=== PATIENT | male | born 1955 | race Caucasian/White ===

== ENCOUNTER → 2017-03-19 | Outpatient (CLI) | payer BC ==
[~2017-03-19] MED LIST: [UNRECOGNIZED DRUG - OTHER]
--- NOTE | 2017-03-19 10:29 | DIAGNOSTIC IMAGING REPORT ---
HEAD CT NONCONTRAST CT DOSE: 614.27 mGy.cm HISTORY: Trauma HEAD INJURY 03/18/17, VISUAL DISTURBANCES TECHNIQUE: Multiaxial CT images of the head were performed without the use of intravenous contrast. Comparison: None. Findings: The paranasal sinuses and mastoid air cells are clear. The calvarium and skull base are intact. The ventricles and sulci are within normal limits. There is no mass, hematoma, midline shift, or acute infarct. Impression: No acute intracranial abnormality. Electronically signed by: Justo Franklin M.D. 03/19/2017 10:28 AM Dictated Date/Time: 03/19/2017 10:25 AM
== END | disposition home or self-care (01) ==
LOC: C.CTS 10:07
PROVIDERS: ATTEND Family Medicine
DX: S09.90XA Unspecified injury of head, initial encounter (principal); X58.XXXA Exposure to other specified factors, initial encounter

== ENCOUNTER 2025-02-11 07:13 | Observation (INO) ==
--- NOTE | 2025-01-21 10:32 | PAT Medication Instructions ---
Medication Instructions Date of Service January 21, 2025 Home Medications losartan 100 mg tablet 100 mg PO QAM meloxicam 15 mg tablet 15 mg PO DAILY PRN Pain melatonin 3 mg capsule 3 mg PO HS PRN Sleep amlodipine 10 mg tablet 10 mg PO QPM meclizine 25 mg tablet (Dramamine (meclizine)) 25 mg PO DAILY PRN prn acetaminophen 500 mg tablet (Acetaminophen Extra Strength) 500 mg PO Q6H PRN prn diclofenac sodium 1 % topical gel 4 g topical BID PRN prn multivitamin 1 tab PO QAM ASK your surgeon for instructions meloxicam 15 mg tablet 15 mg PO DAILY PRN Pain STOP taking 24 hours before surgery diclofenac sodium 1 % topical gel 4 g topical BID PRN prn DO NOT take the morning of surgery losartan 100 mg tablet 100 mg PO QAM multivitamin 1 tab PO QAM Take morning of surgery With a small sip of water, OTHERWISE NOTHING TO EAT OR DRINK AFTER MIDNIGHT: meclizine 25 mg tablet (Dramamine (meclizine)) 25 mg PO DAILY PRN prn (if needed) acetaminophen 500 mg tablet (Acetaminophen Extra Strength) 500 mg PO Q6H PRN prn (if needed) Take evening before surgery melatonin 3 mg capsule 3 mg PO HS PRN Sleep (if needed) amlodipine 10 mg tablet 10 mg PO QPM meclizine 25 mg tablet (Dramamine (meclizine)) 25 mg PO DAILY PRN prn (if needed) acetaminophen 500 mg tablet (Acetaminophen Extra Strength) 500 mg PO Q6H PRN prn (if needed) Other Notes If you have any questions please call us at [phone] or [phone] or [phone] or [phone]
--- NOTE | 2025-01-28 08:24 | Anesthesiology Consultation ---
Date of Service January 28, 2025 Assessment & Plan (1) Encounter for pre-operative examination: - Check BSG DOS (glucose elevated on preop labs at 145. No reported hx of diabetes or prediabetes. Will recheck BSG DOS) - Infectious disease screening: Per assessment on 01/28/25- No known recent infectious disease contacts or current infectious disease symptoms. - Outpatient joint assessment: Pt currently scheduled for inpatient pathway. If surgeon requests review for outpatient joint pathway, patient is an acceptable candidate for outpatient joint program from anesthesia standpoint pending surgeon's office assessment that patient is motivated, has good support and completes Same Day Joint Program preop requirements. Chart Review Chart Review: Acceptable Risk for Surgery and Patient seen in Pre Admission Testing Teaching & Discussion Pre-Anesthesia Teaching/Discussion Notes: Instructed NPO after midnight before surgery,except medications with 15 cc of water. Medication instructions provided according to the PAT guidelines. History Surgery Operation Date: 02/11/25 12:00 Proposed Procedures p Right Anterior Total Hip Arthroplasty - Ben Huddleston, DO Height/Weight Height: 6 ft 2 in Weight: 117.2 kg Allergies Allergy/AdvReac Type Severity Reaction Status Date / Time No Known Allergies Allergy Verified 01/20/25 08:54 Medications Home Medications Medication Instructions Recorded Confirmed Last Taken losartan 100 mg tablet 100 mg PO QAM 12/21/19 01/20/25 03/11/23 meloxicam 15 mg tablet 15 mg PO DAILY PRN Pain 12/21/19 01/20/25 Unknown melatonin 3 mg capsule 3 mg PO HS PRN Sleep 11/22/22 01/20/25 03/10/23 amlodipine 10 mg tablet 10 mg PO QPM 07/14/24 01/20/25 Unknown meclizine 25 mg tablet (Dramamine 25 mg PO DAILY PRN prn 01/13/25 01/20/25 Unknown (meclizine)) acetaminophen 500 mg tablet 500 mg PO Q6H PRN prn 01/20/25 01/20/25 Unknown (Acetaminophen Extra Strength) diclofenac sodium 1 % topical gel 4 g topical BID PRN prn 01/20/25 01/20/25 Unknown multivitamin 1 tab PO QAM 01/20/25 01/20/25 Unknown Past Medical History Medical History Anterolisthesis Chronic low back pain Hypertension Osteoarthritis Retrolisthesis of vertebrae hx Spinal stenosis, lumbar Tinnitus Exercise / Class Metabolic Activity II 4-5 Yardwork/Stairs/Walk up hill (one FS: No CP, no SOB; uses cane PRN) Past Family History Family History Mother Cancer kidney Father Stroke Past Surgical History Surgical History Hx of colonoscopy S/P epidural steroid injection (12/15/24) Past Anesthesia History No Hx of Anesthesia Complications and No Family Hx of Anesthesia Complications History of PONV No Hx of PONV and No Hx of Motion Sickness Social History Smoking Status: Former smoker Do You Dip or Chew Tobacco: No Smoking End Date: 1988 Hx Alcohol Use: Yes Alcohol type: beer alcohol intake frequency: a few times a month (At most) Hx Substance Use: No substance use type: does not use Review of Systems Patient denies chest pain, shortness of breath, dyspnea on exertion, fever, chills, cough, wheezing, palpitations. Physical Exam Vital Signs BP 115/74 P 99 TEMP 97.5 SP02 98%RA RESP 16 Physical Full cervical extension range of motion. Full TMJ range of motion. TMD > 3.5 finger breaths Mallampati Score II Dentition: missing molars, + caps Lungs: clear throughout to auscultation Cardiac: regular rate and rhythm, no murmurs noted Spine: normal Carotid arteries: negative bruit Extremities: no LE edema Lab Results Anesthesia Preop Results Results Anesthesia Widget: WBC 5.03 K/ul (4.8-10.8) 01/28/25 Hgb 15.0 g/dl (14.0-18.0) 01/28/25 Hct 42.6 % (42.0-52.0) 01/28/25 Plt 167 K/uL (130-400) 01/28/25 Na 141 mmol/L (136-145) 01/28/25 K 3.8 mmol/L (3.5-5.1) 01/28/25 Cl 106 mmol/L (98-107) 01/28/25 CO2 27 mmol/L (21-32) 01/28/25 BUN 14 mg/dl (6-23) 01/28/25 Creat 0.55 mg/dl (0.6-1.4) L 01/28/25 Glucose Level 145 mg/dl (70-99(Fasting)) H 01/28/25 PT 10.9 Seconds (9.0-12.0) 01/28/25 PTT 28 Seconds (21-31) 01/28/25 INR 1.0 (0.9-1.1) 01/28/25 Blood Type O Positive 01/28/25 Antibody Screen NEGATIVE 01/28/25 Testing Electrocardiogram Date: 01/28/25 SR with PVCs at 90bpm. "Otherwise normal ECG" Chest X-Ray Date: 01/28/25 FINDINGS: No focal lung consolidation. No pneumothorax or pleural effusion. Normal heart size. Left-sided aortic arch. Midline trachea. No acute osseous abnormality. Degenerative changes of the shoulders. Included upper abdomen is unremarkable. IMPRESSION: No acute cardiopulmonary findings.
[~2025-02-11 07:13] MED LIST changes: +ROPIVACAINE 0.5% 5 MG/ML 30 ML VIAL ONE; -[UNRECOGNIZED DRUG - OTHER]
[2025-02-11] MEDS ORDERED: MIDAZOLAM HCL 1 MG/ML 2ML VIAL ONE ×2 (07:24→09:13)
[2025-02-11] MEDS: ACETAMINOPHEN 500 MG TAB PO SCH ×2 (07:26→13:33)
[2025-02-11] MEDS: dexAMETHasone**PF** 10 MG/ML VIAL IV SCH (07:26)
[2025-02-11] MEDS: GABAPENTIN 300 MG CAP PO SCH (07:26)
[2025-02-11] MEDS: LR 60ML/HR IV SCH (07:26)
[2025-02-11] MEDS: FAMOTIDINE 20 MG TAB PO SCH (07:26)
[2025-02-11] MEDS: LR 500ML BOLUS, THEN 15ML/HR IV SCH (07:40)
--- NOTE | 2025-02-11 08:10 | History & Physical Bridge Note ---
Date of Service February 11, 2025 History & Physical Bridge Note I have examined the patient, reviewed the History & Physical and in the interval since the performance of the History & Physical I have noted the following changes of clinical significance: no changes noted
[2025-02-11] MEDS ORDERED: ATROPINE SULFATE 0.1 MG/ML 10ML SYR IV PRN (08:11)
[2025-02-11] MEDS ORDERED: HYDROmorphone INJ 1 MG/ML SYRINGE IV PRN (08:11)
[2025-02-11] MEDS ORDERED: fentaNYL citrate PF 100 MCG/2 ML VIAL IV PRN (08:11)
[2025-02-11] MEDS ORDERED: ePHEDrine sulfate 50 MG/ML AMP IV PRN (08:11)
[2025-02-11] MEDS ORDERED: ONDANSETRON INJ 2 MG/ML 2 ML VIAL IV PRN ×2 (08:11→12:36)
[2025-02-11] MEDS: TRANEXAMIC ACID 1,000 MG **IV Pre-op IV SCH (08:42)
[2025-02-11] MEDS: ceFAZolin 2000MG 2,000 MG/15 ML SYR IV SCH ×2 (08:52→18:05)
[2025-02-11] MEDS ORDERED: PROPOFOL IV EMULSION 10 MG/ML 20 ML VIAL IV ONE ×4 (09:04→10:01)
[2025-02-11] MEDS ORDERED: PHENYLEPHRINE 100MCG/ML 5ML SYR ONE (09:49)
[2025-02-11] MEDS: ROPIV 0.5% 246mg, Ketorolac 30mg, EPINEPHrine 0.5mg in NSS INFIL SCH (09:55)
[2025-02-11] MEDS: TRANEXAMIC ACID 1,000 MG **IV Intra-op IV SCH (09:56)
[2025-02-11] MEDS: ORTHO JOINT ANESTHETIC ONE (09:56)
--- NOTE | 2025-02-11 10:05 | Operative Report ---
PG Post Operative Report Pre & Post Diagnosis Operation Date: 02/11/25 09:00 Pre-Op Diagnosis: Right Hip Arthritis Post-Op Diagnosis: Right Hip Arthritis I identified the patient and participated in the time-out.: Yes Procedure Operation Date: 02/11/25 09:00 Actual Procedures p Right Anterior Total Hip Arthroplasty, Uncemented(Left) - Ben Huddleston DO Surgeon Ben Huddleston DO Quantity Surveyor John Bennett PA-C Estimated Blood Loss 250 Findings Consistent with Post-Op Diagnosis Specimens Right femoral head Description of Procedure Implants used I used a ZimmerBiomet total hip arthroplasty system with a size 2 standard offset Avenir Complete stem, a 52 mm G7 cup with a 25mm screw, an E1 polyethylene liner, a 36 mm ceramic head with a +3.5 neck. Monico arrived at the hospital for the above procedure. He was seen in the preoperative holding area and the operative extremity was identified and signed. He was given a spinal anesthetic, a preoperative antibiotic, and TXA. He was then taken back to the operating room and laid on the table in the supine position. He was given basic sedation. The operative leg was secured to a Puristst leg positioner. The hip was then prepped and draped in sterile fashion. A timeout was done and the patient and the operative extremity was properly identified. An anterior approach was used. Dissection was taken down through the fascia and the tensor muscle belly was retracted laterally and the rectus was retracted medially. The circumflex vessels were identified and ligated. The capsule was then incised and tagged for later repair. The femoral neck was then cut and the femoral head was removed. The acetabulum was exposed. Time was spent doing a complete circumferential labral release. Sequential reaming of the acetabulum up to a size 52 reamer was done. Final reamings were done under fluoroscopy to ensure appropriate version. A Biomet 52 mm G7 cup was then impacted into place. A single 25 mm screw was placed. The E1 polyethylene liner was then snapped into place. Surrounding soft tissues were then injected with 100 cc of an orthopedic pain control cocktail. The proximal femur was then exposed. Sequential broaching up to a size 2 broach was done. Off that broach a size 36 head with a +3.5 neck was trialed. The hip was reduced and fluoroscopic images showed anatomic alignment of the implants in acceptable length. The broach was removed. The final size 2 standard offset Avenir Complete stem was then impacted into place. A ceramic 36 mm head with a +3.5 neck was then impacted onto the stem and the hip was reduced. Final fluoroscopic images showed anatomic alignment of the hip. The capsule was then closed with #1 Vicryl suture. A dilute betadyne lavage was then done for 3 minutes. The joint was then irrigated with normal saline solution. The fascia was closed with #1 PDS suture. Skin was closed with 2-0 Vicryl, arcenio, and a Silverlon dressing. He was then transferred to a hospital bed and taken to the post anesthesia care unit in stable condition. He tolerated the procedure well. John Bennett PA-C, was present for the entire procedure. He was critical for patient positioning, prepping, draping, retraction exposure, wound closure and application of sterile dressing. I attest to the content of the Intraoperative Record and any orders documented therein. Any exceptions are noted below.
--- NOTE | 2025-02-11 10:45 | Fluoroscopy Report ---
FL hip RT 1V CLINICAL HISTORY: RIGHT ANTERIOR HIP COMPARISON STUDY: None FLUOROSCOPY TIME: 23 seconds FLUOROSCOPY IMAGES: 1 EXPOSURE DOSE: 4.9 mGy FINDINGS: Fluoroscopy was provided for right hip prosthesis. IMPRESSION: Intraoperative fluoroscopy. ACT 112: Negative or not required by law. Electronically signed by: Kieran Buchanan M.D. 02/11/2025 10:44 AM
--- NOTE | 2025-02-11 11:33 | Anesthesiology Progress Note ---
Date of Service February 11, 2025 Anesthesia Post Procedure Vital Signs Vital Signs: Temp Pulse Pulse Resp BP Pulse Ox O2 Del Method 02/11/25 11:30 82 15 124/75 94 Room Air 02/11/25 11:20 36.3 C L 72 13 127/71 94 Room Air 02/11/25 11:10 81 14 108/66 94 Room Air 02/11/25 11:00 78 15 118/66 96 Room Air 02/11/25 10:50 86 15 112/69 95 Oxymask 02/11/25 10:45 79 14 108/68 97 Oxymask 02/11/25 10:40 79 14 96/62 L 96 Oxymask 02/11/25 10:35 81 17 95/60 L 95 Oxymask 02/11/25 10:30 36.7 C 82 14 91/57 L 94 Oxymask 02/11/25 07:21 36.5 C 103 H 20 129/86 95 Room Air O2 Flow Rate 02/11/25 11:30 02/11/25 11:20 02/11/25 11:10 02/11/25 11:00 02/11/25 10:50 3 02/11/25 10:45 12 02/11/25 10:40 12 02/11/25 10:35 12 02/11/25 10:30 12 02/11/25 07:21 Pain Intensity Right Hip: Pain Intensity: 8 Transfer of Care Handoff Completed per policy Notes Mental Status: alert / awake / arousable and participated in evaluation Patient Amnestic to Procedure: Yes Nausea / Vomiting: adequately controlled Pain: adequately controlled Airway Patency, RR, SpO2: stable & adequate BP & HR: stable & adequate Hydration State: stable & adequate Neuraxial Anesthesia: was administered and sensory block is resolving Anesthetic Complications: no major complications apparent and Pt Satisfied with anesthetic care
--- NOTE | 2025-02-11 12:08 | XRay Report ---
XR hip 1V RT w pelvis CLINICAL HISTORY: IN PACU - Post Surgical COMPARISON: None FINDINGS: Right hip prosthesis shows no hardware complication. There is expected soft tissue gas. Sk in arcenio are present. IMPRESSION: Unremarkable postoperative exam. ACT 112: Negative or not required by law. Electronically signed by: Kieran Buchanan M.D. 02/11/2025 12:07 PM
[2025-02-11] MEDS ORDERED: MAGNESIUM HYDROXIDE SUSP 30 ML UDC PO PRN (12:36)
[2025-02-11] MEDS ORDERED: bisacodyL 10 MG SUPP PR PRN (12:36)
[2025-02-11] MEDS ORDERED: METOCLOPRAMIDE HCL INJ 5 MG/ML 2 ML VIAL IV PRN (12:36)
[2025-02-11] MEDS ORDERED: HYDROmorphone INJ 0.5 MG/0.5 ML SYR IV PRN (12:36)
[2025-02-11] MEDS ORDERED: PHARMACY GLYCEMIC MGMT CONSULT PRN (12:36)
[2025-02-11] MEDS ORDERED: NALOXONE HCL 0.4 MG/1 ML VIAL/CARP IV PRN (12:36)
[2025-02-11] MEDS ORDERED: MELATONIN 3 MG TAB PO PRN (12:47)
[2025-02-11] MEDS ORDERED: CARBOHYDRATES FOR HYPOGLYCEMIA PO PRN (13:15)
[2025-02-11] MEDS ORDERED: GLUCAGON FOR INJ 1 MG VIAL SQ PRN (13:15)
[2025-02-11] MEDS ORDERED: GLUCOSE 10 TAB/TUBE PO PRN (13:15)
[2025-02-11] MEDS ORDERED: DEXTROSE 50% 50 ML SYRINGE IV PRN (13:15)
[2025-02-11] MEDS ORDERED: GLUCOSE 40% GEL 15 GM TUBE PO PRN (13:15)
[2025-02-11] MEDS: KETOROLAC TROMETHAMINE 15 MG/ML VIAL IV SCH (13:32)
[2025-02-11] MEDS: oxyCODONE HCL IR 5 MG TAB (IMMEDIATE RELEASE) PO PRN (15:13)
[2025-02-11] MEDS: INSULIN ASPART PER UNIT CHARGE SC SCH (17:34)
[2025-02-11] MEDS: SENNA 8.6 MG TAB PO SCH (20:30)
[2025-02-11] MEDS: DOCUSATE SODIUM 100 MG CAP PO SCH (20:30)
[2025-02-11] MEDS: amLODIPine BESYLATE 5 MG TAB PO SCH (20:30)
--- NOTE | 2025-02-12 08:09 | Orthopedic Progress Note ---
Date of Service February 12, 2025 Assessment & Plan (1) Status post right hip replacement: Overall he is doing very well. He is not having much pain in the right hip. He will be seen by physical therapy today for ambulation and range of motion exercises. He is on aspirin for DVT prophylaxis. He can be discharged home later today. He will follow-up with orthopedics in 2 weeks. Neida Marc was seen and examined at bedside this morning. Overall is doing very well. He is not having much pain in his right hip. He has been up and ambulating to the bathroom. He has no complaints.. Review of Systems All systems reviewed & are unremarkable except as noted in HPI & below. Physical Exam On physical exam of the right hip, the dressing is clean and dry. His leg is out full extension. He has active dorsiflexion plantarflexion of the right ankle.. Results & Data Results & Data Laboratory Results . Diagnostic Findings Postoperative x-rays of the right hip show the prosthesis to be in anatomic alignment without any evidence of fracture complication, or loosening.. PG Care Time/CCT Total # of Minutes Spent Total Time Spent with Patient: Total time spent is greater than 50% in coordination of care (as documented) at patient's floor/unit and/or counseling patient: Coding Level of Care Code 92715 Post Operative Follow-Up Diagnoses Status post right hip replacement Z96.641
--- NOTE | 2025-02-12 08:09 | Discharge Summary ---
Date of Service February 12, 2025 Principal Diagnosis Same as "Discharge Diagnosis" noted below under Discharge Instructions. Discharge Exam On physical exam of the right hip, the dressing is clean and dry. His leg is out full extension. He has active dorsiflexion plantarflexion of the right ankle.. Discharge Data Procedures Performed Operation Date: 02/11/25 09:00 Actual Procedures p Right Anterior Total Hip Arthroplasty, Uncemented(Left) - Ben Huddleston DO Ordered Studies 02/11/25 09:00 FL hip RT 1V Routine Hospital Course (1) Status post right hip replacement: On February 11, [address] [facility], [place] and underwent a right hip replacement without complication. He had a spinal anesthetic. Postoperatively, he was started on aspirin for DVT prophylaxis and transferred to the general orthopedic floors. His hospital course was uneventful. On postop day #1, his vital signs were stable and his pain was well-controlled. He was able to participate well with physical therapy doing ambulation and range of motion exercises. He was then discharged to home. He will follow-up with orthopedics in 2 weeks. PG Care Time/CCT Total # of Minutes Spent Total Time Spent with Patient: Total time spent is greater than 50% in coordination of care (as documented) at patient's floor/unit and/or counseling patient: Discharge Plan Discharge Items Patient Disposition: Home - Self-Care Reason For Visit: Right Hip Arthritis Discharge Diagnosis: Right hip replacement Activity: Per Instructions section Non-emergency contact: Surgeon Call non-emergency contact if: your wound has increased redness and your wound has increased drainage Follow-up/Referrals: PCP,NO [Primary Care Provider] - Diet: Regular Addtl Attending Provider Instructions: Activity and Therapy Recommendations: * If you are using [facility] then therapy will be provided at your home until they feel you have accomplished all of your goals. * If you are using [facility] then Physical Therapy will be provided until they feel you are ready to start Outpatient Physical Therapy. * If you are not using home therapy then Outpatient Physical Therapy should start about 3-5 days from your day of surgery. Therapy will last about 6-10 weeks * You were shown a series of exercises in the hospital. Do these exercises three times each day including the exercises you were shown in physical therapy. * Get up and walk several times each day.~ For the first four weeks, try not to stand or walk for more than one hour at a time. If you do stand or walk for more than one hour, you will not hurt anything, but your leg will likely swell.~~ * As you feel comfortable, you may change from the walker or crutches to a cane and~then to independent walking. Medications: * Narcotic You will likely be sent home from the hospital with a prescription for the narcotic pain medication that worked best throughout your stay. * Cefadroxil -take the antibiotic twice a day for 10 days to help prevent infection. * Aspirin Most patients will be required to take Aspirin 81mg twice a day for 6 weeks after surgery. This is obtained [id number] and a prescription is not necessary. * Other medications may be prescribed for specific circumstances. If you have any questions, please call the office at . * Resume previous home medications unless otherwise instructed TEDs/Elastic Stockings: The white elastic stockings help limit swelling and prevent blood clots from forming in your legs. The more you wear them, the more they work. Wear them for 2 weeks. Dressing Care: Leave the Silverlon dressing in place for 7 days. After 7 days you may remove the dressing. If the incision is not draining then you may leave the arcenio open to air. If there is a little bit of drainage or if the arcenio are getting stuck on your clothing then cover the incision with a dry dressing. The arcenio will be removed at your 2 week follow-up appointment. Showering: You may shower with the Silverlon dressing in place. Do not let the shower spray hit the dressing directly. Pat the Silverlon dressing dry. If the dressing becomes wet underneath, then simply remove the dressing. Keep the incision dry until you are 7 days out from the day of surgery. After 7 days you may remove the Silverlon dressing and shower with the arcenio exposed. Let soapy water run over the arcenio and pat them dry. Do not scrub or soak the incision. Diet: You may resume your previous diet. Things To Watch For: * Drainage from the incision site that occurs more than one week after your surgery. * Increased redness at the incision site. * Fever above 102 degrees Fahrenheit. * Unusual chest pain or shortness of breath. * Call [facility] at with any of the above problems Follow-Up Visit: Follow-up with Dr. Huddleston's office 2-3 weeks after your day of surgery. We will remove your arcenio and answer any questions. If you have any additional questions or concerns, Dr Huddleston is usually in the office at the same time and will be available An appointment was probably scheduled when you signed-up for surgery in the office. If you have any questions call Office Instructions: More detailed instructions as well as Frequently Asked Questions were provided in a folder by our office when you signed-up for surgery. Please review these instructions when you get home. If you have any further questions or concerns, please feel free to call the office at [phone] Pending Studies at Discharge: No Stand-Alone Forms: [facility], Smoking Cessation Medications and DC Order Prescriptions: New cefadroxil 500 mg capsule 500 mg PO BID 10 Days Qty: 20 0RF oxycodone 5 mg tablet 5 mg PO Q6H PRN (Reason: pain) Qty: 30 0RF aspirin 81 mg Tablet,Delayed Release (Dr/Ec) 81 mg PO BID 42 Days Qty: 0 0RF Continued losartan 100 mg tablet 100 mg PO QAM meloxicam 15 mg tablet 15 mg PO DAILY PRN (Reason: Pain) amlodipine 10 mg tablet 10 mg PO QPM melatonin 3 mg capsule 3 mg PO HS PRN (Reason: Sleep) meclizine [Dramamine (meclizine)] 25 mg tablet 25 mg PO DAILY PRN (Reason: prn) diclofenac sodium 1 % Gel 4 g TOPICAL BID PRN (Reason: prn) Patient Comments: apply to hip multivitamin Tablet 1 tab PO QAM acetaminophen [Acetaminophen Extra Strength] 500 mg Tablet 500 mg PO Q6H PRN (Reason: prn) Discharge Orders: Discharge Order (Routine); Ordered 02/12/25 Ordered By: Ben Huddleston Admission Data Admit Date/Time: 02/11/25 10:34 Attending Provider: Ben Huddleston Admit Provider: Ben Huddleston Primary Care Provider: PCP,CHUCK
[2025-02-12] MEDS: ASPIRIN 81 MG ECTAB PO SCH (08:25)
[2025-02-12] MEDS: LOSARTAN POTASSIUM 50 MG TAB PO SCH (08:25)
[2025-02-12] MEDS: dexAMETHasone 4 MG TAB PO SCH (08:25)
[2025-02-12] MEDS: MULTIVITAMIN TAB PO SCH (08:25)
[2025-02-12] MEDS ORDERED: NON-FORMULARY MEDICATION (Multivitamin Tablet) PO SCH (09:00)
[2025-02-12 11:32] VITALS: BP 155/68; PULSE 66; RESP 18; TEMP 97.9; O2SAT 96
== END 2025-02-12 11:38 | disposition home or self-care (01) ==
LOC: ASU 07:13 → PACUINP 07:13 → 3N 13:00